=== PATIENT | male | born 1995 | race Caucasian/White ===

== ENCOUNTER 2021-11-30 03:52 | Emergency (ER) | payer SELFPAY ==
[2021-11-30 04:45] LABS: Arterial Blood Carboxyhemoglob 0.9 % (0-1.5); Blood Gas Oxyhemoglobin 97.5 % (94-97); Blood O2 Saturation 99.4 % (92-98.5)
[2021-11-30 05:08] LABS: Absolute Lymphocytes (CBC) 2.1 K/uL (0.7-4.9); Lymphocytes % 23.5 % (15.3-44.8); MCV 84.7 fL (80-100); MPV 7.2 fL (7.6-11.3); RBC Red Blood Cell Count 4.84 M/uL (4.33-5.43)
[2021-11-30 05:09] LABS: Protime INR 0.96
[2021-11-30 05:37] LABS: ALT/SGPT 102 U/L (12-78); AST/SGOT 38 U/L (15-37); Albumin 3.6 g/dL (3.4-5.0); Alkaline Phosphatase 82 U/L (45-117); BUN Blood Urea Nitrogen 14 mg/dL (7-18); Bicarbonate 29 mmol/L (21-32); Bilirubin Direct < 0.1 mg/dL (0-0.2); Bilirubin Total 0.3 mg/dL (0.2-1.0); Creatine Phosphokinase 157 U/L (39-308); Glomerular Filtration Rate 91 ml/min (=/>90); Glucose Level 143 mg/dL (74-106); NT PRO-BNP 18 pg/mL (<125); Potassium 3.6 mmol/L (3.5-5.1); Protein, Total 7.3 g/dL (6.4-8.2); Sodium Level 139 mmol/L (136-145); Troponin High Sensitivity 3.5 pg/mL (<58.9)
[2021-11-30] MEDS ORDERED: NA CHLORIDE 0.9% 1,000 ML ONE (07:07)
[2021-11-30 08:36] LABS: Urine Blood Trace-intact (Negative); Urine Glucose Negative (Negative); Urine Protein Negative (Negative); Urine Specific Gravity >=1.030 (1.005-1.030); Urine pH 5.5 (5.0-7.0)
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
[2021-11-30 09:13] VITALS: TEMP 98.9
[2021-11-30 09:23] LABS: Barbiturates NEGATIVE (NEGATIVE); Benzodiazepines NEGATIVE (NEGATIVE); Cocaine NEGATIVE (NEGATIVE); METHAMPHETAM NEGATIVE (NEGATIVE); Methadone NEGATIVE (NEGATIVE); Opiates NEGATIVE (NEGATIVE); Phencyclidine NEGATIVE (NEGATIVE); THC Cannibis POSITIVE (NEGATIVE)
[2021-11-30 09:25] VITALS: BP 110/76; O2SAT 96
--- NOTE | 2021-11-30 13:43 | EKG ---
Test Date: 2021-11-30 Test Time: 04:09:15 [employer]: MELO MEASUREMENT RESULTS: Intervals: Rate: 115 CA: 176 QRSD: 84 QT: 316 QTc: 437 [place]: P: 35 CA: 176 QRS: 168 T: 26 INTERPRETIVE STATEMENTS: Sinus tachycardia Right axis deviation Abnormal ECG No previous ECG available for comparison Electronically Signed On 11-30-21 13:42:52 CDT by Antoine Davis
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
== END 2021-11-30 09:07 | disposition home or self-care (01) ==
LOC: ER 03:52
DX: Z77.098 Contact with and (suspected) exposure to other hazardous, chiefly nonmedicinal, chemicals (principal); X01.0XXA Exposure to flames in uncontrolled fire, not in building or structure, initial encounter; R42 Dizziness and giddiness; F17.210 Nicotine dependence, cigarettes, uncomplicated
CPT/HCPCS: 36415; 71045; 80048; 80076; 80307; 80320; 80329; 81003; 82550; 82805; 83735; 83880; 84484; 85025; 85610; 93005; 99285; J7030